=== PATIENT | female | born 1945 | race Two or more races ===

== ENCOUNTER 2024-08-24 09:25 | Outpatient (CLI) | payer OTHER ==
[~2024-08-24 09:25] MED LIST: TUSSI-PRES LIQ118 ML PO
== END 2024-08-24 09:27 | disposition home or self-care (01) ==
LOC: NUCLEAR 09:25
PROVIDERS: ATTEND Internal Medicine Cardiovascular Disease
DX: I10 Essential (primary) hypertension (principal)

== ENCOUNTER 2024-09-19 07:49 | Outpatient (CLI) | payer OTHER | END 2024-09-19 07:50 | disposition home or self-care (01) | LOC: NUCLEAR 07:49 | PROVIDERS: ATTEND Internal Medicine Cardiovascular Disease | DX: I10 Essential (primary) hypertension (principal); R07.9 Chest pain, unspecified ==